=== PATIENT | female | born 1980 | race Hispanic/Latino ===

== ENCOUNTER 2023-04-15 17:19 | Emergency (ER) | payer OTHER ==
[~2023-04-15] VITALS: Ht 175.3 cm; Wt 916.7 kg
[~2023-04-15 17:19] MED LIST: GLYB5TAB9 PO; LEVO750T39 PO; LISI5TAB21 PO; Metformin Hcl PO
[2023-04-15 21:10] LABS: APPEARANCE,URINE CLOUDY (CLEAR); BILIRUBIN,URINE NEGATIVE (NEGATIVE); COLOR,URINE DARK-YELLOW (YELLOW); GLUCOSE, URINE (UA) >=1000 mg/dL (NEGATIVE); KETONES,URINE 60 mg/dL (NEGATIVE); LEUKOCYTE ESTERASE ,URINE 250 Leu/uL (NEGATIVE); NITRATE,URINE NEGATIVE (NEGATIVE); PH,URINE 5.5 (5.0-8.0); PROTEIN,URINE 10 mg/dL (NEGATIVE); UROBILINOGEN,URINE 0.2 mg/dL (0.2-1.0)
[2023-04-15 21:12] LABS: ADD UA MICROSCOPIC YES
[2023-04-15 21:13] LABS: HCG,QUALITATIVE URINE NEGATIVE (NEGATIVE)
[2023-04-15 21:23] LABS: BACTERIA,URINE MOD /HPF (None Seen); MUCUS,URINE RARE LPF (None Seen); SQUAMOUS EPITHELIAL CELL,UR RARE /HPF (0-2); UNCLASSIFIED CRYSTAL 1 /HPF (None Seen); WBC,URINE 51-100 /HPF (0-1); YEAST,URINE BUDDING RARE /HPF (None Seen)
[2023-04-15] MEDS ORDERED: PHEN-847 PO (21:50)
[2023-04-15] MEDS ORDERED: CEPH500B PO (21:50)
[2023-04-15 23:31] LABS: RAPID GROUP A STREP negative (NEGATIVE)
[2023-04-15 23:40] LABS: INFLUENZA TYPE A Negative For Type A (NEGATIVE); INFLUENZA TYPE B Negative For Type B (NEGATIVE)
[2023-04-15 23:41] LABS: SARS-CoV-2, RNA, NAAT NEGATIVE SARS CoV-2 (NEGATIVE)
[2023-04-16 00:03] VITALS: BP 132/86; PULSE 99; RESP 18; O2SAT 98
== END 2023-04-16 00:04 | disposition home or self-care (01) ==
LOC: EDH 17:19
DX: N39.0 Urinary tract infection, site not specified (principal); Z20.822 Contact with and (suspected) exposure to COVID-19; Z79.84 Long term (current) use of oral hypoglycemic drugs; Z79.899 Other long term (current) drug therapy; Z88.8 Allergy status to other drugs, medicaments and biological substances
CPT/HCPCS: 99283; 87635; 87077; 87088; 87186; 87880; 87804 ×2; 81001; 81025; C9803